=== PATIENT | female | born 1985 | race Caucasian/White ===

== ENCOUNTER 2019-10-16 12:17 | Emergency (ER) | payer MEDICAID ==
[~2019-10-16] VITALS: Ht 160 cm; Wt 105.0 kg
[2019-10-16] MEDS ORDERED: proparacaine 0.5% ophthalmic drops 15ml EACHEYE ONE (13:20)
[2019-10-16] MEDS ORDERED: erythromycin ophthalmic ointment 1gm tube LEFTEYE ONE (13:25)
[2019-10-16] MEDS ORDERED: GATI2.5D RIGHTEYE (14:04)
[2019-10-16 14:15] VITALS: BP 122/68
== END 2019-10-16 14:20 | disposition home or self-care (01) ==
LOC: ER 12:18
DX: H16.001 Unspecified corneal ulcer, right eye (principal); Z86.711 Personal history of pulmonary embolism; Z88.0 Allergy status to penicillin; Z88.5 Allergy status to narcotic agent; Z79.899 Other long term (current) drug therapy
CPT/HCPCS: 99283

== ENCOUNTER 2020-04-02 13:40 | Emergency (ER) | payer MEDICAID ==
[~2020-04-02] VITALS: Ht 160 cm; Wt 114.9 kg
[~2020-04-02 13:40] MED LIST: GATI2.5D RIGHTEYE
[2020-04-02 13:43] VITALS: BP 123/85
[2020-04-02] MEDS ORDERED: ketorolac trometh inj. 60 MG/2 ML VIAL IM ONE (14:45)
[2020-04-02] MEDS ORDERED: cyclobenzaprine 10mg tablet PO ONE (14:45)
[2020-04-02] MEDS ORDERED: traMADol 50MG tablet PO ONE (14:45)
[2020-04-02] MEDS ORDERED: ondansetron 4mg rapidly disintigrating tab PO ONE (14:45)
[2020-04-02] MEDS ORDERED: TRAM50TA2 PO (15:34)
[2020-04-02] MEDS ORDERED: CYCL-1 PO (15:34)
[2020-04-02] MEDS ORDERED: NAPR-56 PO (15:34)
== END 2020-04-02 15:44 | disposition home or self-care (01) ==
LOC: ER 13:40
DX: S13.4XXA Sprain of ligaments of cervical spine, initial encounter (principal); M25.511 Pain in right shoulder; J45.909 Unspecified asthma, uncomplicated; Z86.711 Personal history of pulmonary embolism; Z88.0 Allergy status to penicillin; Z88.5 Allergy status to narcotic agent; Z79.899 Other long term (current) drug therapy; V89.2XXA Person injured in unspecified motor-vehicle accident, traffic, initial encounter; Y93.89 Activity, other specified; Y92.89 Other specified places as the place of occurrence of the external cause; Y99.8 Other external cause status
CPT/HCPCS: 72040; 96372; 99284; J1885

== ENCOUNTER 2020-05-13 19:46 | Emergency (ER) | payer MEDICAID, OTHER ==
[~2020-05-13] VITALS: Ht 160 cm; Wt 202.3 kg
[~2020-05-13 19:46] MED LIST changes: +CYCL-1 PO
[2020-05-13 20:42] LABS: BASOPHILS # (AUTO) 0.1 X10'3 (0-0.2); BASOPHILS % (AUTO) 0.7 % (0-1); EOSINOPHILS # (AUTO) 0.4 X10'3 (0-0.9); EOSINOPHILS % (AUTO) 3.3 % (0-6); HEMATOCRIT 38.8 % (35.0-45.0); HEMOGLOBIN 12.9 g/dl (12.0-16.0); LYMPHOCYTES # (AUTO) 2.7 X10'3 (1.1-4.8); LYMPHOCYTES % (AUTO) 22.1 % (21-51); MEAN CORPUSCULAR HGB CONC 33.2 g/dL (33.0-36.5); MEAN CORPUSCULAR VOLUME 84.4 FL (78-98); MEAN PLATELET VOLUME 9.1 FL (7.4-10.4); MONOCYTES # (AUTO) 0.4 X10'3 (0-0.9); MONOCYTES % (AUTO) 3.4 % (2-12); NEUTROPHILS # (AUTO) 8.6 X10'3 (1.8-7.7); NEUTROPHILS % (AUTO) 70.5 % (42-75); PLATELET COUNT 297 X10'3 (140-440); RED CELL DISTRIBUTION WIDTH 15.3 % (11.5-14.5); WHITE BLOOD COUNT 12.3 X10'3 (4.5-11.0)
[2020-05-13 20:56] LABS: ALANINE AMINOTRANSFERASE 45 U/L (12-78); ALBUMIN 3.6 G/DL (3.4-5.0); ALBUMIN/GLOBULIN RATIO 0.8 (1.1-1.5); ALKALINE PHOSPHATASE 146 IU/L (46-116); ANION GAP 9 (8-16); ASPARTATE AMINO TRANSFERASE 26 U/L (10-37); BILIRUBIN,TOTAL 0.7 MG/DL (0.1-1.0); BLOOD UREA NITROGEN 14 MG/DL (7-18); BUN/CREATININE RATIO 17.1 (6.6-38.0); CALCIUM 9.4 MG/DL (8.5-10.1); CHLORIDE 104 MMOL/L (99-107); CREATININE 0.82 MG/DL (0.40-0.90); GLUCOSE 111 MG/DL (70-104); LIPASE 134 U/L (73-393); POTASSIUM 3.8 MMOL/L (3.5-5.1); SODIUM 139 MMOL/L (135-145); TOTAL CARBON DIOXIDE 25.8 MMOL/L (24-32); eGFR 80 ML/MIN
[2020-05-13] MEDS ORDERED: fentaNYL/PF 50MCG/1 ML 2ML syringe IV ONE (21:20)
--- NOTE | 2020-05-13 21:37 | NUR ---
MEDICATED WITH 75 MG OF FENTANYL IV FOR R LOWER QUAD PAIN .
--- NOTE | 2020-05-13 21:50 | NUR ---
PT TO CT
--- NOTE | 2020-05-13 22:12 | NUR ---
PT BACK FROM CT
[2020-05-13] MEDS ORDERED: HYDROmorphone 1 mg/ml syringe IV ONE (22:55)
--- NOTE | 2020-05-13 22:57 | NUR ---
ULTRA SOUND RETURNED PAGE, ASKING TO HYRDATE PATIENT TO FILL HER BLADDER FOR THE ULTRA SOUND
[2020-05-14] MEDS ORDERED: ONDA4TAB6 PO (00:22)
[2020-05-14] MEDS ORDERED: ondansetron 4mg rapidly disintigrating tab PO ONE (00:25)
[2020-05-14 00:41] VITALS: BP 102/51
== END 2020-05-14 00:39 | disposition home or self-care (01) ==
LOC: ER 19:48
DX: K57.90 Diverticulosis of intestine, part unspecified, without perforation or abscess without bleeding (principal); R10.31 Right lower quadrant pain; R11.0 Nausea; J45.909 Unspecified asthma, uncomplicated; Z86.711 Personal history of pulmonary embolism; Z90.49 Acquired absence of other specified parts of digestive tract; Z90.710 Acquired absence of both cervix and uterus; Z88.0 Allergy status to penicillin; Z88.5 Allergy status to narcotic agent; Z79.2 Long term (current) use of antibiotics; Z79.899 Other long term (current) drug therapy
CPT/HCPCS: 36415; 74176; 76830; 76856; 80053; 83690; 85025; 93976; 96374; 96375; 99285; J1170; J3010

== ENCOUNTER 2020-07-01 18:55 | Emergency (ER) | payer MEDICAID ==
[~2020-07-01] VITALS: Ht 160 cm; Wt 113.6 kg
[~2020-07-01 18:55] MED LIST changes: +ONDA4TAB6 PO
[2020-07-01 19:38] LABS: BASOPHILS # (AUTO) 0.1 X10'3 (0-0.2); BASOPHILS % (AUTO) 0.6 % (0-1); EOSINOPHILS # (AUTO) 0.2 X10'3 (0-0.9); EOSINOPHILS % (AUTO) 1.4 % (0-6); HEMATOCRIT 37.7 % (35.0-45.0); HEMOGLOBIN 12.7 g/dl (12.0-16.0); LYMPHOCYTES # (AUTO) 2.2 X10'3 (1.1-4.8); LYMPHOCYTES % (AUTO) 17.4 % (21-51); MEAN CORPUSCULAR HEMOGLOBIN 27.8 PG (27.0-31.0); MEAN CORPUSCULAR HGB CONC 33.7 g/dL (33.0-36.5); MEAN CORPUSCULAR VOLUME 82.6 FL (78-98); MONOCYTES # (AUTO) 0.4 X10'3 (0-0.9); MONOCYTES % (AUTO) 3.6 % (2-12); NEUTROPHILS # (AUTO) 9.5 X10'3 (1.8-7.7); PLATELET COUNT 323 X10'3 (140-440); RED BLOOD COUNT 4.56 X10'6 (4.20-5.60); RED CELL DISTRIBUTION WIDTH 15.1 % (11.5-14.5); WHITE BLOOD COUNT 12.4 X10'3 (4.5-11.0)
[2020-07-01] MEDS ORDERED: aspirin 81mg tab.chew PO ONE (19:40)
[2020-07-01 19:45] LABS: D-DIMER 0.38 MG/L FEU (0-0.50)
[2020-07-01 19:48] LABS: ALANINE AMINOTRANSFERASE 24 U/L (12-78); ALBUMIN 3.6 G/DL (3.4-5.0); ALBUMIN/GLOBULIN RATIO 0.9 (1.1-1.5); ALKALINE PHOSPHATASE 135 IU/L (46-116); ANION GAP 5 (8-16); ASPARTATE AMINO TRANSFERASE 12 U/L (10-37); BILIRUBIN,TOTAL 0.7 MG/DL (0.1-1.0); BLOOD UREA NITROGEN 12 MG/DL (7-18); CALCIUM 8.6 MG/DL (8.5-10.1); CHLORIDE 104 MMOL/L (99-107); GLUCOSE 123 MG/DL (70-104); POTASSIUM 3.3 MMOL/L (3.5-5.1); SODIUM 138 MMOL/L (135-145); TOTAL CARBON DIOXIDE 28.9 MMOL/L (24-32); TOTAL PROTEIN 7.7 G/DL (6.4-8.2); eGFR 83 ML/MIN
[2020-07-01] MEDS ORDERED: enoxaparin 100mg/ml syringe SUBCUT ONE (20:55)
[2020-07-01] MEDS ORDERED: APIX5TAB3 PO (20:56)
[2020-07-01] MEDS ORDERED: AZIT-63 PO (21:00)
[2020-07-01] MEDS ORDERED: azithromycin 250mg tablet PO ONE (21:00)
[2020-07-01 21:26] VITALS: BP 113/60
== END 2020-07-01 21:27 | disposition home or self-care (01) ==
LOC: ER 18:56
DX: R07.89 Other chest pain (principal); J45.909 Unspecified asthma, uncomplicated; Z90.49 Acquired absence of other specified parts of digestive tract; Z90.710 Acquired absence of both cervix and uterus; Z88.0 Allergy status to penicillin; Z88.5 Allergy status to narcotic agent; Z79.01 Long term (current) use of anticoagulants; Z79.2 Long term (current) use of antibiotics; Z79.899 Other long term (current) drug therapy
CPT/HCPCS: 36415; 71045; 80053; 83880; 84484; 85025; 85379; 93005; 96372; 99285; J1650

== ENCOUNTER 2022-01-27 10:19 | Emergency (ER) | payer MEDICAID ==
[~2022-01-27] VITALS: Ht 160 cm; Wt 124.5 kg
[~2022-01-27 10:19] MED LIST changes: +APIX5TAB3 PO
[2022-01-27 11:07] VITALS: BP 125/95
[2022-01-27] MEDS ORDERED: IBUP-1986 PO (13:35)
[2022-01-27] MEDS ORDERED: HYDROcodone/acetaminophen 10/325mg tab PO ONE (13:40)
== END 2022-01-27 13:58 | disposition home or self-care (01) ==
LOC: ER 10:20
DX: M25.532 Pain in left wrist (principal); J45.909 Unspecified asthma, uncomplicated; Z88.0 Allergy status to penicillin; Z88.5 Allergy status to narcotic agent; Z79.899 Other long term (current) drug therapy; X50.0XXA Overexertion from strenuous movement or load, initial encounter; Y93.89 Activity, other specified; Y92.89 Other specified places as the place of occurrence of the external cause; Y99.8 Other external cause status
CPT/HCPCS: 29125; 73110; 99283

== ENCOUNTER 2022-02-21 00:59 | Emergency (ER) | payer MEDICAID ==
[~2022-02-21] VITALS: Ht 160 cm; Wt 122.7 kg
[~2022-02-21 00:59] MED LIST changes: +IBUP-1986 PO
[2022-02-21 02:30] LABS: BASOPHILS % (AUTO) 0.2 % (0-1); EOSINOPHILS % (AUTO) 0.2 % (0-6); HEMATOCRIT 36.8 % (35.0-45.0); HEMOGLOBIN 12.1 g/dl (12.0-16.0); LYMPHOCYTES # (AUTO) 1.2 X10'3 (1.1-4.8); LYMPHOCYTES % (AUTO) 10.6 % (21-51); MEAN CORPUSCULAR HEMOGLOBIN 26.9 PG (27.0-31.0); MEAN CORPUSCULAR HGB CONC 32.9 g/dL (33.0-36.5); MEAN PLATELET VOLUME 8.4 FL (7.4-10.4); MONOCYTES # (AUTO) 0.5 X10'3 (0-0.9); MONOCYTES % (AUTO) 4.4 % (2-12); NEUTROPHILS # (AUTO) 9.8 X10'3 (1.8-7.7); NEUTROPHILS % (AUTO) 84.6 % (42-75); PLATELET COUNT 323 X10'3 (140-440); RED BLOOD COUNT 4.48 X10'6 (4.20-5.60); RED CELL DISTRIBUTION WIDTH 15.5 % (11.5-14.5); WHITE BLOOD COUNT 11.6 X10'3 (4.5-11.0)
[2022-02-21 02:41] LABS: ALANINE AMINOTRANSFERASE 37 U/L (12-78); ALBUMIN 3.4 G/DL (3.4-5.0); ALBUMIN/GLOBULIN RATIO 0.7 (1.1-1.5); ALKALINE PHOSPHATASE 141 IU/L (46-116); ANION GAP 8 (8-16); ASPARTATE AMINO TRANSFERASE 18 U/L (10-37); BILIRUBIN,TOTAL 0.5 MG/DL (0.1-1.0); BLOOD UREA NITROGEN 11 MG/DL (7-18); BUN/CREATININE RATIO 12.5 (6.6-38.0); CALCIUM 8.7 MG/DL (8.5-10.1); CHLORIDE 105 MMOL/L (99-107); CREATININE 0.88 MG/DL (0.40-0.90); GLUCOSE 171 MG/DL (70-104); POTASSIUM 3.5 MMOL/L (3.5-5.1); SODIUM 138 MMOL/L (135-145); TOTAL CARBON DIOXIDE 25.2 MMOL/L (24-32); TOTAL PROTEIN 8.1 G/DL (6.4-8.2); eGFR 74 ML/MIN
[2022-02-21] MEDS ORDERED: albuterol 2.5 MG/3 ML nebule NEB ONE (03:10)
[2022-02-21 03:20] LABS: D-DIMER 0.36 MG/L FEU (0-0.50)
[2022-02-21 03:21] LABS: HCG SERUM QL NEGATIVE
[2022-02-21 04:04] VITALS: BP 130/61
== END 2022-02-21 05:54 | disposition home or self-care (01) ==
LOC: ER 00:59
DX: R06.02 Shortness of breath (principal); R05.9 Cough, unspecified; R00.0 Tachycardia, unspecified; Z86.711 Personal history of pulmonary embolism; J45.909 Unspecified asthma, uncomplicated; Z90.49 Acquired absence of other specified parts of digestive tract; Z90.710 Acquired absence of both cervix and uterus; Z88.0 Allergy status to penicillin; Z88.5 Allergy status to narcotic agent; Z79.899 Other long term (current) drug therapy; Z79.2 Long term (current) use of antibiotics
CPT/HCPCS: 36415; 71046; 80053; 83605; 83880; 84484; 84703; 85025; 85379; 87040; 87502; 87503; 93005; 94640; 94760; 99285

== ENCOUNTER 2022-04-03 21:22 | Emergency (ER) | payer MEDICAID ==
[~2022-04-03] VITALS: Ht 160 cm; Wt 118.2 kg
[2022-04-03 21:26] VITALS: BP 128/78
[2022-04-03 22:18] LABS: BASOPHILS # (AUTO) 0.1 X10'3 (0-0.2); BASOPHILS % (AUTO) 0.6 % (0-1); EOSINOPHILS # (AUTO) 0.4 X10'3 (0-0.9); EOSINOPHILS % (AUTO) 3.3 % (0-6); HEMATOCRIT 36.1 % (35.0-45.0); HEMOGLOBIN 11.8 g/dl (12.0-16.0); LYMPHOCYTES # (AUTO) 2.2 X10'3 (1.1-4.8); LYMPHOCYTES % (AUTO) 19.5 % (21-51); MEAN CORPUSCULAR HEMOGLOBIN 26.4 PG (27.0-31.0); MEAN CORPUSCULAR HGB CONC 32.6 g/dL (33.0-36.5); MEAN CORPUSCULAR VOLUME 81.1 FL (78-98); MEAN PLATELET VOLUME 8.3 FL (7.4-10.4); MONOCYTES # (AUTO) 0.4 X10'3 (0-0.9); NEUTROPHILS # (AUTO) 8.1 X10'3 (1.8-7.7); NEUTROPHILS % (AUTO) 72.6 % (42-75); PLATELET COUNT 377 X10'3 (140-440); RED BLOOD COUNT 4.45 X10'6 (4.20-5.60); RED CELL DISTRIBUTION WIDTH 15.9 % (11.5-14.5); WHITE BLOOD COUNT 11.2 X10'3 (4.5-11.0)
[2022-04-03 22:30] LABS: ALANINE AMINOTRANSFERASE 31 U/L (12-78); ALBUMIN 3.4 G/DL (3.4-5.0); ALBUMIN/GLOBULIN RATIO 0.8 (1.1-1.5); ALKALINE PHOSPHATASE 138 IU/L (46-116); AMYLASE 32 U/L (25-115); ANION GAP 8 (8-16); ASPARTATE AMINO TRANSFERASE 15 U/L (10-37); BILIRUBIN,TOTAL 0.4 MG/DL (0.1-1.0); BLOOD UREA NITROGEN 10 MG/DL (7-18); BUN/CREATININE RATIO 10.1 (6.6-38.0); CALCIUM 8.9 MG/DL (8.5-10.1); CHLORIDE 106 MMOL/L (99-107); CREATININE 0.99 MG/DL (0.40-0.90); GLUCOSE 116 MG/DL (70-104); LIPASE 151 U/L (73-393); POTASSIUM 3.7 MMOL/L (3.5-5.1); SODIUM 141 MMOL/L (135-145); TOTAL CARBON DIOXIDE 26.9 MMOL/L (24-32); TOTAL PROTEIN 7.8 G/DL (6.4-8.2); eGFR 64 ML/MIN
[2022-04-04 00:52] LABS: CLARITY,URINE CLEAR (Clear); COLOR,URINE YELLOW (Yellow); GLUCOSE, URINE NEGATIVE (Neg); KETONES,URINE TRACE mg/dl (Neg); LEUKOCYTE ESTERASE ,URINE NEGATIVE (Neg); NITRITES, URINE NEGATIVE (Neg); OCCULT BLOOD,URINE NEGATIVE (Neg); PROTEIN,URINE NEGATIVE (Neg); UA COLLECTION TYPE CLN CATCH MIDSTREAM; UROBILINOGEN,URINE 0.2 E.U/dL (0.2-1.0)
[2022-04-04 01:05] LABS: URINE AMPHETAMINE SCREEN NEGATIVE (Neg); URINE BARBITUATE SCREEN NEGATIVE (Neg); URINE BENZODIAZEPINES SCREEN NEGATIVE (Neg); URINE CANNABINOID SCREEN NEGATIVE (Neg); URINE COCAINE SCREEN NEGATIVE (Neg); URINE METHADONE SCREEN NEGATIVE (Neg); URINE OPIATE SCREEN NEGATIVE (Neg); URINE PHENCYCLIDINE SCREEN NEGATIVE (Neg)
== END 2022-04-04 01:41 | disposition left against medical advice (07) ==
LOC: ER 21:23
DX: R10.12 Left upper quadrant pain (principal); Z53.21 Procedure and treatment not carried out due to patient leaving prior to being seen by health care provider
CPT/HCPCS: 36415; 80053; 80305; 81003; 82150; 83690; 85025

== ENCOUNTER 2022-08-15 17:33 | Emergency (ER) | payer MEDICAID ==
[~2022-08-15] VITALS: Ht 160 cm; Wt 90.9 kg
[2022-08-15] MEDS ORDERED: methylPREDNISolone sod succ 125mg/2ml vial IV ONE (17:40)
[2022-08-15] MEDS ORDERED: diphenhydrAMINE 50 mg/ml inj IV ONE (17:40)
[2022-08-15] MEDS ORDERED: LORazepam 2 mg/ml vial IV ONE ×2 (17:40→18:25)
[2022-08-15] MEDS ORDERED: dexamethasone sod phosphate 10mg/ml inj PO STA (17:44)
[2022-08-15 18:17] VITALS: BP 127/86
== END 2022-08-15 19:10 | disposition home or self-care (01) ==
LOC: ER 17:34
DX: T78.1XXA Other adverse food reactions, not elsewhere classified, initial encounter (principal); R13.19 Other dysphagia; J45.909 Unspecified asthma, uncomplicated; Z90.49 Acquired absence of other specified parts of digestive tract; Z88.0 Allergy status to penicillin; Z88.5 Allergy status to narcotic agent; Z79.899 Other long term (current) drug therapy
CPT/HCPCS: 96374; 96375; 99284; J1100; J1200; J2060; J2930

== ENCOUNTER 2025-05-23 07:27 | Outpatient (CLI) | payer MEDICAID ==
[2025-05-23] VITALS (14 sets, daily range): BP systolic 121–152; BP diastolic 53–89; PULSE 58–90
== END 2025-05-23 23:59 | disposition home or self-care (01) ==
LOC: CARD DIAG 07:27
PROVIDERS: ATTEND Internal Medicine Interventional Cardiology
DX: R55 Syncope and collapse (principal)
CPT/HCPCS: 93660